=== PATIENT | female | born 2005 | race Caucasian/White ===

== ENCOUNTER 2024-12-05 18:26 | Emergency (ER) | payer OTHER ==
[2024-12-05] MEDS ORDERED: KETOROLAC 30 MG/ML INJ ONE (20:48)
[2024-12-05] MEDS ORDERED: NA CHLORIDE 0.9% 1,000 ML ONE (20:48)
[2024-12-05 20:53] LABS: Absolute Basophils 0.1 K/uL (0-0.5); Absolute Eosinophils 0.5 K/uL (0-0.5); Absolute Lymphocytes (CBC) 2.5 K/uL (0.7-4.9); Absolute Monocytes 0.8 K/uL (0.1-1.3); Absolute Neutrophil 10.5 K/uL (1.8-8.0); Basophils % 0.7 % (0-1.3); Eosinophils % 3.8 % (0-4.4); Hematocrit 40.4 % (36.0-45.0); Hemoglobin 13.5 g/dL (12.0-15.0); Lymphocytes % 17.3 % (15.3-44.8); MCH 29.7 pg (27.0-35.0); MCHC 33.4 g/dL (32.0-36.0); MCV 89.2 fL (80-100); MPV 7.8 fL (7.6-11.3); Monocytes % 5.8 % (3.3-12.3); Neutrophils % 72.4 % (41.7-73.7); Nucleated Red Blood Cells % 0.1 % (0-0); Platelets 345 thou/uL (152-406); RBC Red Blood Cell Count 4.53 M/uL (3.86-4.86); Red Cell Distribution Width 13.6 % (12.1-15.2)
[2024-12-05 20:56] LABS: Urine Bacteria <20 /HPF (<20); Urine Bilirubin NEGATIVE (Negative); Urine Blood 1+ (Negative); Urine Clarity Extremely Turbid (Clear); Urine Color Light-Yellow (Yellow); Urine Crystals Unidentified Moderate /HPF (None Seen); Urine Culture Reflex Order REFLEXED; Urine Glucose NEGATIVE (Negative); Urine Ketones NEGATIVE (Negative); Urine Microscopic Reflex YN ORDER UMIC; Urine Mucus Slight /HPF (None Seen); Urine Nitrite NEGATIVE (Negative); Urine Protein 1+ (Negative); Urine RBC 21-50 /HPF (None Seen); Urine Urobilinogen Normal (Normal); Urine WBC >50 /HPF (<5); Urine WBC Clump Occasional /HPF (None Seen); Urine Yeast (Budding) Few /HPF (None Seen); Urine pH 6.5 (5.0-7.0)
[2024-12-05 21:15] LABS: ALT/SGPT 17 U/L (13-56); Albumin 3.8 g/dL (3.4-5.0); Alkaline Phosphatase 80 U/L (45-117); Anion Gap 6.8 mEq/L (5.0-15.0); BUN Blood Urea Nitrogen 16 mg/dL (7-18); Bicarbonate 27 mEq/L (21-32); Bilirubin Total 0.3 mg/dL (0.2-1.0); Glomerular Filtration Rate 118 ml/min (=/>90); Glucose Level 84 mg/dL (74-106); Lipase 25 U/L (13-75); Potassium 3.8 mEq/L (3.5-5.1); Protein, Total 7.8 g/dL (6.4-8.2); Sodium Level 136 mEq/L (136-145)
[2024-12-05 21:19] LABS: AST/SGOT < 10 U/L (15-37)
--- NOTE | 2024-12-05 21:30 | RAD REPORT ---
EXAMINATION: CT ABDOMEN AND PELVIS WITH CONTRAST CLINICAL INDICATION: ABD PAIN TECHNIQUE: CT abdomen and pelvis was performed, after the administration of IV contrast, as per [facility] protocol. Axial, sagittal and coronal reconstructions were obtained. One or more of the following dose reduction techniques were used: Automated exposure control, adjustment of the mA and k V according to patient size, and iterative reconstruction. Unless otherwise specified, incidental findings do not require dedicated imaging follow-up. COMPARISON: No prior exam. FINDINGS: LOWER CHEST: The visualized lung bases are clear. LIVER: Normal in size and contour. No focal lesion. Grossly unremarkable gallbladder. SPLEEN: Normal size. No focal lesion. PANCREAS: No mass, ductal dilation, or mayuri-pancreatic fluid. ADRENALS: Normal; no mass. KIDNEYS: Normal size and contour. No hydronephrosis. GASTROINTESTINAL TRACT: No evidence of free air, significant intra-abdominal free fluid, bowel obstru ction or abscess. Moderate stool is retained throughout the colon. APPENDIX: Normal appendix. LYMPH NODES: No lymphadenopathy. MUSCULOSKELETAL: No acute or suspicious osseous abnormality. ADDITIONAL FINDINGS: Urinary bladder shows wall enhancement and wall thickening compatible with cysti tis. IMPRESSION: Cystitis is suspected, suggest correlation with urinalysis. Moderate stool retention throughout the colon.
[2024-12-05] MEDS ORDERED: ACETAMINOPHEN 500 MG TAB ONE (21:52)
[2024-12-05] MEDS ORDERED: CEPHALEXIN 250 MG CAP ONE (21:52)
[2024-12-05] MEDS ORDERED: PHENAZOPYRIDINE 100MG TAB PO ONE (21:52)
--- NOTE | 2024-12-05 21:53 | EDPHYS ---
Physician Documentation [facility] Name: Jossie Hickey Age: 19 yrs Sex: Female : 2005 Arrival Date: 12/05/2024 Time: 18:26 Bed 13 Private MD: ED Physician Phillip Smiley HPI: 12/05 20:07 This 19 yrs old Female presents to ER via Ambulatory with complaints of sp4 Abdominal Pain. 12/06 20:26 Patient presents with acute onset right flank pain. . sp4 EDITOR CONTINUITY AND SCRIPT: 12/05 19:23 LMP 11/23/2024, unknown cp4 Historical: - Allergies: 19: Ibuprofen; cp4 - Immunization history:: Adult Immunizations up to date. - Infectious Disease History:: Denies. - Social history:: Smoking status: Patient denies any tobacco usage or history of. - Family history:: not pertinent. ROS: 12/06 20:26 Constitutional: Negative for fever, chills, and weight loss, Positive right flank pain sp4 All other systems are negative, Exam: 20:26 Constitutional: This is a well developed, well nourished patient who is awake, alert, sp4 and in no acute distress. Head/Face: Normocephalic, atraumatic. Eyes: Pupils equal round and reactive to light, extra-ocular motions intact. Lids and lashes normal. Conjunctiva and sclera are not injected. Cornea within normal limits. Periorbital areas with no swelling, redness, or edema. ENT: Nares patent. No nasal discharge, no septal abnormalities noted. Tympanic membranes are normal and external auditory canals are clear. Oropharynx with no redness, swelling, or masses, exudates, or evidence of obstruction, uvula midline. Mucous membranes moist. Neck: Trachea midline, no thyromegaly or masses palpated, and no cervical lymphadenopathy. Supple, full range of motion without nuchal rigidity, or vertebral point tenderness. Chest/axilla: Normal chest wall appearance and motion. Nontender with no deformity. No lesions are appreciated. Cardiovascular: Regular rate and rhythm with a normal S1 and S2. No gallops, murmurs, or rubs. Normal PMI, no JVD. No pulse deficits. Respiratory: Lungs have equal breath sounds bilaterally, clear to auscultation and percussion. No rales, rhonchi or wheezes noted. No increased work of breathing, no retractions or nasal flaring. Abdomen/GI: Soft, with normal bowel sounds. No distension or tympany. No guarding or rebound. No evidence of tenderness throughout. Back: No spinal tenderness. No costovertebral tenderness. Skin: Warm, dry with normal turgor. Normal color with no rashes, no lesions, and no evidence of cellulitis. MS/ Extremity: Pulses equal, no cyanosis. Neurovascular intact. Full, normal range of motion. Neuro: Awake and alert, GCS 15, oriented to person, place, time, and situation. Cranial nerves II-XII grossly intact. Motor strength 5/5 in all extremities. Sensory grossly intact. Psych: Awake, alert, with orientation to person, place and time. Behavior, mood, and affect are within normal limits Vital Signs: 12/05 19:21 Pulse 73; Resp 18; Temp 97.7; Pulse Ox 100% ; Weight 47.63 kg; Height 5 ft. 6 in. ; cp4 Pain 8/10; 19:21 BP 112 / 75; cp4 21:00 BP 108 / 91; Pulse 55; Resp 16; Pulse Ox 100% ; me1 21:45 BP 113 / 77; Pulse 71; Resp 16; Pulse Ox 100% ; me1 22:05 BP 112 / 83; Pulse 82; Resp 16; Pulse Ox 100% ; me1 19:21 Body Mass Index 16.95 (47.63 kg, 167.64 cm) cp4 19:21 Pain Scale: Adult cp4 Barbara Coma Score: 12/06 20:26 Eye Response: spontaneous(4). Motor Response: obeys commands(6). Verbal Response: sp4 oriented(5). Total: 15. MDM: 12/05 19:35 Medical Screening Exam initiated sp3 12/06 20:26 Differential diagnosis: cholecystitis, Cholelithiasis, Endometriosis, gastritis, sp4 Hepatitis. Data reviewed: vital signs, nurses notes, lab test result(s), radiologic studies, CT scan. Consideration of Admission/Observation Escalation of care including admission/observation considered. 20:31 ED course: EXAMINATION: CTABDOMEN AND PELVIS WITH CONTRAST CLINICAL INDICATION: ABD sp4 PAIN TECHNIQUE: CT abdomen and pelvis was performed, after the administration of IV contrast, as per department protocol. Axial, sagittal and coronal reconstructions were obtained. One or more of the following dose reduction techniques were used: Automated exposure control, adjustment of the mA and kV according to patient size, and iterative reconstruction. Unless otherwise specified, incidental findings do not require dedicated imaging follow-up. COMPARISON: No prior exam. FINDINGS: LOWER CHEST: The visualized lung bases are clear. LIVER: Normal in size and contour. No focal lesion. Grossly unremarkable gallbladder. SPLEEN: Normal size. No focal lesion. PANCREAS: No mass, ductal dilation, or mayuri-pancreatic fluid. ADRENALS: Normal; no mass. KIDNEYS: Normal size and contour. No hydronephrosis. GASTROINTESTINAL TRACT: No evidence of free air, significant intra-abdominal free fluid, bowel obstruction or abscess. Moderate stool is retained throughout the colon. APPENDIX: Normal appendix. LYMPH NODES: No lymphadenopathy. MUSCULOSKELETAL: No acute or suspicious osseous abnormality. Final Radiology Report Contrast ADDITIONAL FINDINGS: Urinary bladder shows wall enhancement and wall thickening compatible with cystitis. IMPRESSION: Cystitis is suspected, suggest correlation with urinalysis. Moderate stool retention throughout the colon. . 12/05 20:21 Order name: CBC with Diff; Complete Time: 21:44 sp4 12/05 20:21 Order name: CMP; Complete Time: 21:44 sp4 12/05 20:21 Order name: Lipase; Complete Time: 21:44 sp4 12/05 20:21 Order name: Test, Urine; Complete Time: 21:44 sp4 12/05 20:21 Order name: Urinalysis w/ reflexes; Complete Time: 21:44 sp4 12/05 20:59 Order name: Urine Culture EDAK 12/05 20:27 Order name: CT Abd/Pelvis - IV Contrast Only; Complete Time: 21:44 sp4 12/05 20:21 Order name: IV Saline Lock; Complete Time: 20:46 sp4 12/05 20:21 Order name: Labs collected and sent; Complete Time: 20:46 sp4 Administered Medications: 12/05 20:54 Drug: Ketorolac IVP 30 mg IVP once Route: IVP; Site: right antecubital; me1 21:36 Follow up: Response: No adverse reaction; Pain is decreased me1 20:54 Drug: NS 0.9% IV 1000 ml IV at 1 bolus Per protocol; to be given as a bolus over 60 me1 minutes Route: IV; Rate: 1 bolus; Site: right antecubital; 22:06 Follow up: IV Status: Completed infusion; IV Intake: 1000ml me1 22:05 Drug: Cephalexin PO 500 mg PO once Route: PO; me1 22:05 Follow up: Response: No adverse reaction me1 22:05 Drug: Acetaminophen PO 1000 mg PO once Route: PO; me1 22:05 Follow up: Response: No adverse reaction me1 22:05 Drug: Phenazopyridine PO 200 mg PO once Route: PO; me1 22:05 Follow up: Response: No adverse reaction me1 Disposition Summary: 12/05/24 21:53 Discharge Ordered Notes: Location: Home sp4 Problem: new sp4 Symptoms: have improved sp4 Condition: Stable sp4 Diagnosis - Acute cystitis sp4 - Acute right flank pain sp4 Followup: sp4 - With: Private Physician - When: As needed - Reason: Discharge Instructions: - Discharge Summary Sheet sp4 - Urinary Tract Infection, Adult, [id number] sp4 Forms: - Patient Portal Instructions sp4 - Work release form nv1 Prescriptions: - phenazopyridine 200 mg Oral tablet - take 1 tablet ORAL route 3 times per day for 3 days; 9 tablet; Refills: 0, sp4 Product Selection Permitted - Cephalexin 500 mg Oral Capsule - take 1 capsule ORAL route every 12 hours for 10 days; 20 capsule; Refills: 0, sp4 Product Selection Permitted - Ibuprofen 600 mg Oral Tablet - take 1 tablet ORAL route every 6 hours As needed take with food; 30 tablet; sp4 Refills: 0, Product Selection Permitted Signatures: Dispatcher [employer] Hugo Oconnell MD MD sp3 Phillip Smiley MD MD sp4 Melita Ochoa RN RN me1 Shanice Vivar cp4 Corrections: (The following items were deleted from the chart) 19:23 19:23 Allergies: No Known Allergies; cp4 cp4
--- NOTE | 2024-12-05 21:53 | ER ---
Nurse's Notes [facility] Name: Jossie Hickey Age: 19 yrs Sex: Female : 2005 Arrival Date: 12/05/2024 Time: 18:26 Bed 13 Private MD: Diagnosis: Acute cystitis;Acute right flank pain Presentation: 12/05 19:21 Chief complaint: Patient states: right flank pain that radiates to the back. Pain cp4 started today. Coronavirus screen: Client denies travel out of the [place] in the last 14 days. At this time, the client does not indicate any symptoms associated with coronavirus-19. Ebola Screen: Patient negative for fever greater than or equal to 101.5 degrees Fahrenheit, and additional compatible Ebola Virus Disease symptoms Patient denies exposure to infectious person. Patient denies travel to an Ebola-affected area in the 21 days before illness onset. No symptoms or risks identified at this time. Initial Sepsis Screen: Does the patient meet any 2 criteria? No. Patient's initial sepsis screen is negative. Does the patient have a suspected source of infection? No. Patient's initial sepsis screen is negative. Risk Assessment: Do you want to hurt yourself or someone else? Patient reports no desire to harm self or others. Onset of symptoms was December 05, 2024. 19:21 Method Of Arrival: Ambulatory cp4 19:21 Acuity: SUSSY 3 cp4 Triage Assessment: 19:23 General: Appears in no apparent distress. uncomfortable, Behavior is calm, cooperative, cp4 appropriate for age. Pain: Complains of pain in right flank Pain radiates to back Pain currently is 8 out of 10 on a pain scale. GI: No signs and/or symptoms were reported involving the gastrointestinal system. 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 - Infectious Disease History:: Denies. - Social history:: Smoking status: Patient denies any tobacco usage or history of. - Family history:: not pertinent. Screenin:10 [facility] ED Fall Risk Assessment (Adult) History of falling in the last 3 months, me1 including since admission No falls in past 3 months (0 pts) Confusion or Disorientation No (0 pts) Intoxicated or Sedated No (0 pts) Impaired Gait No (0 pts) Mobility Assist Device Used No (0 pt) Altered Elimination No (0 pt) Score/Fall Risk Level 0 - 2 = Low Risk Maintained a safe environment, Provided non-skid footwear, Hourly rounding (assess needs \T\ fall precautionary measures) done. Abuse screen: Denies threats or abuse. Nutritional screening: No deficits noted. Tuberculosis screening: No symptoms or risk factors identified. Assessment: 20:10 General: Appears uncomfortable, ill, well groomed, well developed, well nourished, me1 Behavior is calm, cooperative, appropriate for age, Reports right flank pain that radiates to the back. Pain started today. Pain: Complains of pain in posterior aspect of right lateral abdomen and back Pain does not radiate. Pain currently is 8 out of 10 on a pain scale. Quality of pain is described as sharp, shooting, Pain began suddenly, Is continuous. Neuro: Level of Consciousness is awake, alert, obeys commands, Oriented to person, place, time, situation, Appropriate for age. Cardiovascular: Patient's skin is warm and dry. Respiratory: Airway is patent Respiratory effort is even, unlabored, Respiratory pattern is regular, symmetrical. GI: Abdomen is flat, Bowel sounds present X 4 quads. Abd is soft X 4 quads Reports nausea. : Reports pain in right flank(s), in lower back. EENT: No signs and/or symptoms were reported regarding the EENT system. Derm: Skin is intact, is healthy with good turgor, Skin is pink, warm \T\ dry. Musculoskeletal: No signs and/or symptoms reported regarding the musculoskeletal system. Vital Signs: 19:21 Pulse 73; Resp 18; Temp 97.7; Pulse Ox 100% ; Weight 47.63 kg; Height 5 ft. 6 in. ; cp4 Pain 8/10; 19:21 BP 112 / 75; cp4 21:00 BP 108 / 91; Pulse 55; Resp 16; Pulse Ox 100% ; me1 21:45 BP 113 / 77; Pulse 71; Resp 16; Pulse Ox 100% ; me1 22:05 BP 112 / 83; Pulse 82; Resp 16; Pulse Ox 100% ; me1 19:21 Body Mass Index 16.95 (47.63 kg, 167.64 cm) cp4 19:21 Pain Scale: Adult cp4 Barbara Coma Score: 12/06 20:26 Eye Response: spontaneous(4). Motor Response: obeys commands(6). Verbal Response: sp4 oriented(5). Total: 15. ED Course: 12/05 18:32 Patient arrived in ED. im 18:34 Hugo Smith MD is Attending Physician. sp3 19:23 Triage completed. cp4 19:23 Arm band placed on right wrist. Patient placed in waiting room. cp4 20:07 Attending Physician role handed off by Hugo Smith MD sp4 20:07 Phillip Smiley MD is Attending Physician. sp4 20:10 Patient has correct armband on for positive identification. Bed in low position. Call me1 light in reach. Side rails up X 1. Provided Education on: POC. Verbalized understanding.. Client placed on continuous cardiac and pulse oximetry monitoring. NIBP monitoring applied. Pulse ox on. NIBP on. 20:10 No provider procedures requiring assistance completed. me1 20:33 Melita Ochoa, RN is Primary Nurse. me1 20:46 CBC with Diff Sent. me1 20:46 CMP Sent. me1 20:46 Lipase Sent. me1 20:46 Test, Urine Sent. me1 20:46 Urinalysis w/ reflexes Sent. me1 20:46 Initial lab(s) drawn, by ne, sent to lab. Urine collected: clean catch specimen, me1 cloudy. Inserted saline lock: 22 gauge in right antecubital area, using aseptic technique. 21:27 CT Abd/Pelvis - IV Contrast Only In Process Unspecified. EDMS 22:06 IV discontinued, intact, bleeding controlled, No redness/swelling at site. Pressure me1 dressing applied. Administered Medications: 20:54 Drug: Ketorolac IVP 30 mg IVP once Route: IVP; Site: right antecubital; me1 21:36 Follow up: Response: No adverse reaction; Pain is decreased me1 20:54 Drug: NS 0.9% IV 1000 ml IV at 1 bolus Per protocol; to be given as a bolus over 60 me1 minutes Route: IV; Rate: 1 bolus; Site: right antecubital; 22:06 Follow up: IV Status: Completed infusion; IV Intake: 1000ml me1 22:05 Drug: Cephalexin PO 500 mg PO once Route: PO; me1 22:05 Follow up: Response: No adverse reaction me1 22:05 Drug: Acetaminophen PO 1000 mg PO once Route: PO; me1 22:05 Follow up: Response: No adverse reaction me1 22:05 Drug: Phenazopyridine PO 200 mg PO once Route: PO; me1 22:05 Follow up: Response: No adverse reaction me1 Medication: 20:10 VIS not applicable for this client. me1 Intake: 22:06 IV: 1000ml; Total: 1000ml. me1 Outcome: 21:53 Discharge ordered by . sp4 22:06 Discharged to home ambulatory, with family, me1 22:06 Condition: stable 22:06 Discharge instructions given to patient, family, Instructed on discharge instructions, follow up and referral plans. medication usage, Demonstrated understanding of instructions, follow-up care, medications, Prescriptions given X 3, 22:07 Patient left the ED. me1 Signatures: Dispatcher [employer] EDMS Hugo Smith MD MD sp3 Phillip Smiley MD MD sp4 Veronica Faulkner Michelle, RN RN me1 Shanice Vivar cp4 Corrections: (The following items were deleted from the chart) 19:23 19:23 Allergies: No Known Allergies; cp4 cp4 21:33 19:21 Chief complaint: Patient states: right flank pain that radiates to the back. Pain me1 started today. cp4
== END 2024-12-05 22:07 | disposition home or self-care (01) ==
LOC: ER 18:26
DX: N30.00 Acute cystitis without hematuria (principal)
CPT/HCPCS: 87088; 85025; 81001; 87086; 36415; 81025; 83690; 80053; 74177; Q9967; J7030